=== PATIENT | female | born 1940 | race Hispanic/Latino ===

== ENCOUNTER 2019-12-15 13:42 | Inpatient (IN) | payer OTHER, MEDICARE ==
[~2019-12-15] VITALS: Ht 157.5 cm; Wt 74.4 kg
[2019-12-15 14:35] LABS: BASOPHILS % (AUTO) 0.6 % (0.0-5.0); HEMATOCRIT 34.3 % (36-48); LYMPHOCYTES % (AUTO) 12.5 % (21.0-51.0); MEAN CORPUSCULAR HEMOGLOBIN 30.8 pg (27.0-33.0); MEAN CORPUSCULAR HGB CONC 30.9 g/dL (32.0-36.0); MEAN CORPUSCULAR VOLUME 99.7 fL (79-99); MONOCYTES % (AUTO) 8.3 % (3.0-13.0); NEUTROPHILS % (AUTO) 74.3 % (40.0-77.0); NUCLEATED RED BLOOD CELLS 3.7 % (0.0-0.19); PLATELET COUNT (AUTO) 373 K/uL (130-400); RED BLOOD CELL COUNT(AUTO) 3.44 MIL/uL (4.00-5.50); RED CELL DISTRIBUTION WIDTH 22.1 % (11.0-15.5); WHITE BLOOD COUNT (AUTO) 6.7 K/uL (4.8-10.8)
[2019-12-15 14:45] LABS: APPEARANCE,URINE Clear (CLEAR); BILIRUBIN,URINE Small (NEGATIVE); COLOR,URINE Dark Yellow (YELLOW); GLUCOSE, URINE (UA) Negative (NEGATIVE); KETONES,URINE 15 mg/dL (NEGATIVE); LEUKOCYTE ESTERASE ,URINE Small (NEGATIVE); NITRATE,URINE Negative (NEGATIVE); OCCULT BLOOD,URINE Negative (NEGATIVE); PROTEIN,URINE Trace mg/dL (NEGATIVE)
[2019-12-15] MEDS ORDERED: DILTIAZEM HCL 125 MG/25 ML VIAL IV ONE (14:47)
[2019-12-15 14:49] LABS: INR 1.16 (0.85-1.15); PARTIAL THROMBOPLASTIN TIME 31.5 SEC (26.3-35.5); PROTHROMBIN TIME 12.5 SEC (9.6-11.6)
[2019-12-15] MEDS ORDERED: DILTIAZEM HCL 5 MG/ML 10 ML VIAL IV ONE (14:49)
[2019-12-15] MEDS ORDERED: SODIUM CHLORIDE 0.9% 1000ML 1,000 ML IV ONE (14:50)
[2019-12-15 15:14] LABS: BACTERIA,URINE Few /HPF (None Seen); MUCUS,URINE Moderate LPF (None Seen); RBC,URINE None Seen /HPF (0-1); YEAST,URINE BUDDING Moderate /HPF (None Seen)
[2019-12-15 15:23] LABS: ALANINE AMINOTRANSFERASE 24 U/L (12-78); ALBUMIN 2.6 g/dL (3.5-5.0); ASPARTATE AMINOTRANSFERASE 44 U/L (10-37); BILIRUBIN,TOTAL 1.1 mg/dL (0.2-1.0); CARBON DIOXIDE 17 mmol/L (21-32); CREATININE 3.5 mg/dL (0.5-1.5); GLOMERULAR FILTR. RATE CALC 13 mL/min (>60); GLUCOSE,RANDOM 139 mg/dL (70-105); POTASSIUM 3.7 mmol/L (3.5-5.1); TOTAL PROTEIN, SERUM 6.7 g/dL (6.0-8.3)
[2019-12-15 15:29] LABS: PLATELET MORPHOLOGY GIANT PLTS PRESENT
[2019-12-15 15:30] LABS: CHLORIDE 127 mmol/L (101-111); SODIUM SERUM > 162 mmol/L (136-145); UREA NITROGEN, BLOOD 121 mg/dL (7-18)
[2019-12-15] MEDS ORDERED: DEXTROSE 5%-WATER 1,000 ML IV ONE (17:29)
[2019-12-15 17:33] LABS: ABG BASE EXCESS -7.1 mmol/L (-2.0-3.0); ABG HCO3 16.8 mmol/L (21.0-28.0); ABG OXYGEN SATURATION 96.6 % (95.0-99.0); ABG PCO2 30 mmHg (32-45)
[2019-12-15] MEDS: DEXTROSE 5%-WATER 1,000 ML IV SCH (19:15)
[2019-12-15] MEDS ORDERED: CEFTRIAXONE SODIUM 500 MG VIAL IV SCH (19:15)
[2019-12-16 02:46] VITALS: BP 109/62
[2019-12-16] MEDS ORDERED: LACTATED RINGERS 1000ML 1,000 ML IV ONE (03:21)
[2019-12-16 04:13] LABS: ABG BASE EXCESS -8.2 mmol/L (-2.0-3.0); ABG HCO3 14.6 mmol/L (21.0-28.0); ABG OXYGEN SATURATION 96.9 % (95.0-99.0); ABG PCO2 25 mmHg (32-45)
[2019-12-16 04:15] VITALS: BP 101/69
[2019-12-16] MEDS: DEXTROSE 5%-WATER 1,000 ML IV SCH ×3 (05:07→20:23)
--- NOTE | 2019-12-16 05:52 | NUR ---
ADMISSION ASSESSMENT This is a 79 year old female who was brought to ED for SHORTNESS OF BREATH. Pt has Alzheimer's dementia and unable to provide ANY INFORMATION. PATIENT IS FROM [facility] WHICH DID NOT PROVIDE ANY PAPERWORK OR INFORMATION ON PATIENT. PATIENT DOES HAVE CHRONIC AFIB AND FOUND TO BE IN AFIB RVR. PATIENT'S HEART RATE IS BETWEEN 130'S-150'S. COMPRESSED GAS PLANT WORKER IS AWARE AND THINKS IT IS DUE TO DEHYDRATION AND ELECTROLYTE IMBALANCE. PATIENT HAS CARDIZEM DRIP AT 10MG/HR. MONITORING BLOOD PRESSURE CLOSELY WITH TITRATING CARDIZEM DRIP. D5W GOING AT 100ML/HR. PATIENT IS AWAKE AND CAN FOLLOW SIMPLE COMMANDS BUT DOES NOT SPEAK. ACUÑA INTACT WITH YELLOW URINE OUTPUT AT THIS TIME. BED ALARM IS ON.
[2019-12-16 06:49] LABS: BASOPHILS % (AUTO) 0.7 % (0.0-5.0); MEAN CORPUSCULAR HEMOGLOBIN 31.3 pg (27.0-33.0); MEAN CORPUSCULAR HGB CONC 30.9 g/dL (32.0-36.0); MEAN CORPUSCULAR VOLUME 101.2 fL (79-99); MONOCYTES % (AUTO) 7.6 % (3.0-13.0); NUCLEATED RED BLOOD CELLS 3.7 % (0.0-0.19); PLATELET COUNT (AUTO) 227 K/uL (130-400); RED BLOOD CELL COUNT(AUTO) 3.36 MIL/uL (4.00-5.50); RED CELL DISTRIBUTION WIDTH 22.2 % (11.0-15.5); WHITE BLOOD COUNT (AUTO) 6.8 K/uL (4.8-10.8)
--- NOTE | 2019-12-16 06:55 | NUR ---
CARDIZEM INCREASED CARDIZEM DRIP INCREASED TO 15MG/HR HEART RATE IS STILL IN THE 140'S. WILL MONITOR HEART RATE AND BLOOD PRESSURE CLOSELY
[2019-12-16 07:12] LABS: POTASSIUM 3.8 mmol/L (3.5-5.1)
[2019-12-16 07:45] VITALS: BP 111/58
[2019-12-16] MEDS ORDERED: HYDRALAZINE HCL 20 MG/ML VIAL IV PRN (07:45)
[2019-12-16] MEDS ORDERED: ONDANSETRON HCL 4 MG/2 ML VIAL IVP PRN (07:45)
[2019-12-16] MEDS ORDERED: ACETAMINOPHEN 325 MG TAB PO PRN (07:45)
[2019-12-16] MEDS ORDERED: LOPERAMIDE 1 MG/7.5 ML UDCUP PO PRN (07:45)
[2019-12-16] MEDS ORDERED: CEFTRIAXONE SODIUM 1 GM IV SCH (09:07)
[2019-12-16] MEDS: HEPARIN SODIUM 5000UNIT/ML 1ML VIAL SQ SCH ×2 (09:16→20:43)
[2019-12-16] MEDS: FAMOTIDINE 20MG TAB 20 MG TAB PO SCH (09:17)
[2019-12-16 11:10] VITALS: BP 86/70
[2019-12-16] MEDS ORDERED: PHARMACY COMMUNICATION MISC SCH (12:30)
[2019-12-16] MEDS ORDERED: DILTIAZEM 125MG+100 ML NS 125 ML IV SCH (12:45)
[2019-12-16] MEDS ORDERED: AMIODARONE HCL 150 MG in DEXTROSE 5%-WATER 100 ML IV SCH (14:30)
[2019-12-16] MEDS ORDERED: AMIODARONE HCL 360 MG in DEXTROSE 5%-WATER 200 ML IV SCH (14:30)
--- NOTE | 2019-12-16 15:25 | NUR ---
CHART CHECK COMPLETED. Pt IS A 79 Y.O. FEMALE ADMITTED SECONDARY TO AFIB RVR, DEHYDRATION, SEVERE HYPONATREMIA. Pt HAS A PAST MEDICAL HISTORY SIGNIFICANT FOR ALZHEIMER'S DEMENTIA, DM, DYSPHAGIA, COVID 19,RIGHT AND LEFT BUTTOCK PRESSURE ULCER. Pt CURRENTLY ON REGULAR TEXTURE,THIN LIQUID DIET (HEART HEALTHY). PLEASE REQUEST FORMAL SKILLED SPEECH/SWALLOW EVALUATION IF Pt PRESENTS WITH +S/S OF ASPIRATION SUCH COUGH RESPONSE, THROAT CLEAR, OR WET VOCAL QUALITY DURING P.O. EVALUATION IS HIGHLY RECOMMENDED DUE TO DYSPHAGIA HISTORY. Addendum: 12/16/19 at [address] Amended: Links added.
[2019-12-16 16:00] VITALS: BP 81/58
--- NOTE | 2019-12-16 16:53 | NUR ---
ARA PLAN PATIENT ADMITTED. PATIENT HAS DEMENTIA NOT ABLE TO ANSWER QUESTIONS. NO PERSON TO NOTIFY ON FACE SHEET. PER ER NOTES PATIENT IS FROM A SNF BUT NAME NOT GIVEN. PATIENT IN COVID UNIT. CM WILL CONTINUE TO FOLLOW. Addendum: 12/16/19 at 1654 by NATALI RUTLEDGE RN CM Amended: Links added.
[2019-12-16 20:21] VITALS: BP 115/85
--- NOTE | 2019-12-16 22:00 | NUR ---
2000 PATIENT PULLED OUT BOTH IV'S INCLUDING THE ONE WITH THE AMIODARONE DRIP. JOHN BHATTI WAS ABLE TO PLACE A 20G IN HER RIGHT FOREARM. DRIP RESTARTED
[2019-12-17 00:33] VITALS: BP 102/73
[2019-12-17] MEDS: AMIODARONE HCL 450 MG in DEXTROSE 5%-WATER 250 ML IV SCH (02:39)
[2019-12-17 04:01] VITALS: BP 98/62
[2019-12-17 05:30] LABS: BASOPHILS % (AUTO) 0.3 % (0.0-5.0); EOSINOPHILS % (AUTO) 0.7 % (0.0-8.0); HEMATOCRIT 29.4 % (36-48); LYMPHOCYTES % (AUTO) 8.4 % (21.0-51.0); MEAN CORPUSCULAR HEMOGLOBIN 31.2 pg (27.0-33.0); MEAN CORPUSCULAR HGB CONC 31.3 g/dL (32.0-36.0); MEAN CORPUSCULAR VOLUME 99.7 fL (79-99); MONOCYTES % (AUTO) 5.2 % (3.0-13.0); NEUTROPHILS % (AUTO) 81.9 % (40.0-77.0); NUCLEATED RED BLOOD CELLS 2.5 % (0.0-0.19); PLATELET COUNT (AUTO) 287 K/uL (130-400); RED BLOOD CELL COUNT(AUTO) 2.95 MIL/uL (4.00-5.50); RED CELL DISTRIBUTION WIDTH 21.7 % (11.0-15.5); WHITE BLOOD COUNT (AUTO) 7.2 K/uL (4.8-10.8)
[2019-12-17 06:06] LABS: ALBUMIN 2.3 g/dL (3.5-5.0); CREATININE 2.7 mg/dL (0.5-1.5); MAGNESIUM 1.9 mg/dL (1.80-2.40); PHOSPHORUS 3.1 mg/dL (2.5-4.9); POTASSIUM 3.4 mmol/L (3.5-5.1); TOTAL PROTEIN, SERUM 6.1 g/dL (6.0-8.3)
[2019-12-17 08:30] VITALS: BP 100/77
[2019-12-17] MEDS: FAMOTIDINE 20MG TAB 20 MG TAB PO SCH (09:32)
[2019-12-17] MEDS: HEPARIN SODIUM 5000UNIT/ML 1ML VIAL SQ SCH (09:34)
[2019-12-17 11:00] VITALS: BP 87/74
[2019-12-17] MEDS ORDERED: METOPROLOL TARTRATE 25 MG TAB PO SCH (11:00)
[2019-12-17] MEDS: DEXTROSE 5%-WATER 1,000 ML IV SCH ×2 (11:32→21:08)
--- NOTE | 2019-12-17 12:27 | NUR ---
ARA PLAN VISITED WITH PATIENT. PATIENT HAS DEMENTIA. ORTIZ CALLED SAID PATIENT CAME FROM HER FACILITY. [place] FOR [place] [facility] [place]. GAVE ME SONS NUMBER. CALLED SON. PER PATIENT LIVES ALONE. PRIOR TO GETTING SICK. SHE WAS ABLE TO PERFORM ADL'S. PATIENT HAD NO DME. PROVIDER FOR A COUPLE OF HOURS. PER SON SAID WANTS MOM TO RETURN TO [facility] ONCE SHE IS FEELING BETTER FOR THERAPY. CM WILL CONTINUE TO FOLLOW. PASQUALE PATEL [phone] SENT TO REGISTRATION TO UPDATE. Addendum: 12/17/19 at 1231 by NATALI RUTLEDGE RN CM Amended: Links added.
[2019-12-17 15:30] VITALS: BP 119/94
[2019-12-17] MEDS: METOPROLOL TARTRATE 1 MG/ML 5ML VIAL IV PRN (17:21)
--- NOTE | 2019-12-17 17:37 | NUR ---
METOPROLOL IV GAVE 5MG IV TO PATIENT FOR ELEVATED HEART RATE OF 134. BP 112/94. AFTER FIRST DOSE PATIENT HEART RATE WAS 129 WITH BP OF 82/49, DID NOT GIVE SECOND DOSE OF METOPROLOL DUE TO BP BELOW 100MMHG.
[2019-12-17 20:24] VITALS: BP 98/70
[2019-12-17] MEDS: METOPROLOL TARTRATE 25 MG TAB PO SCH (21:08)
[2019-12-18 00:15] VITALS: BP 97/77
[2019-12-18 04:13] LABS: ABG BASE EXCESS -5.4 mmol/L (-2.0-3.0); ABG HCO3 14.2 mmol/L (21.0-28.0); ABG PCO2 18 mmHg (32-45)
[2019-12-18 04:15] VITALS: BP 124/58
[2019-12-18] MEDS: DEXTROSE 5%-WATER 1,000 ML IV SCH ×3 (04:38→20:07)
[2019-12-18 05:53] LABS: BASOPHILS % (AUTO) 0.4 % (0.0-5.0); EOSINOPHILS % (AUTO) 0.1 % (0.0-8.0); HEMATOCRIT 29.7 % (36-48); LYMPHOCYTES % (AUTO) 8.3 % (21.0-51.0); MEAN CORPUSCULAR HEMOGLOBIN 30.7 pg (27.0-33.0); MEAN CORPUSCULAR HGB CONC 31.3 g/dL (32.0-36.0); MONOCYTES % (AUTO) 4.6 % (3.0-13.0); NEUTROPHILS % (AUTO) 83.2 % (40.0-77.0); NUCLEATED RED BLOOD CELLS 0.6 % (0.0-0.19); PLATELET COUNT (AUTO) 253 K/uL (130-400); RED BLOOD CELL COUNT(AUTO) 3.03 MIL/uL (4.00-5.50); WHITE BLOOD COUNT (AUTO) 7.2 K/uL (4.8-10.8)
[2019-12-18 06:39] LABS: BILIRUBIN,TOTAL 1.1 mg/dL (0.2-1.0); CREATININE 2.5 mg/dL (0.5-1.5); MAGNESIUM 1.8 mg/dL (1.80-2.40); PHOSPHORUS 2.9 mg/dL (2.5-4.9); POTASSIUM 3.3 mmol/L (3.5-5.1); TOTAL PROTEIN, SERUM 5.9 g/dL (6.0-8.3)
[2019-12-18] MEDS ORDERED: DILTIAZEM HCL 5 MG/ML 10 ML VIAL IV SCH (08:45)
[2019-12-18] MEDS: METOPROLOL TARTRATE 25 MG TAB PO SCH ×3 (08:59→20:07)
[2019-12-18] MEDS: AMIODARONE HCL 200 MG TABLET PO SCH (09:16)
[2019-12-18] MEDS: FAMOTIDINE 20MG TAB 20 MG TAB PO SCH (09:16)
[2019-12-18] MEDS: CEFTRIAXONE SODIUM 1 GM IV SCH (09:16)
[2019-12-18 09:21] VITALS: BP 116/64
--- NOTE | 2019-12-18 10:32 | NUR ---
CARDIOLOGY CALL TO GET AN UPDATE OF THE PATIENT CONDITION, AFTER EVALUATION HE ORDER TO ADM CARDIZEM 20 MG IV, START CARDIZEM DRIP AND HOLD METOPROLOL FOR NOW. AT THE MOMENT PT WITH SUSTAIN HR 140-148, BP 116/64.
[2019-12-18 12:00] VITALS: BP 102/80
[2019-12-18] MEDS: DILTIAZEM HCL 125 MG/25 ML 125 MG in SODIUM CHLORIDE 0.9% 100 ML IV SCH (12:30)
[2019-12-18] MEDS: ENOXAPARIN SODIUM 80 MG/0.8 ML SQ SCH (13:55)
[2019-12-18] MEDS: AMIODARONE HCL 150 MG in DEXTROSE 5%-WATER 100 ML IV SCH ×2 (18:24→18:30)
[2019-12-18 19:06] VITALS: BP 101/69
[2019-12-18 20:30] VITALS: BP 97/60
[2019-12-18] MEDS: AMIODARONE HCL 450 MG in DEXTROSE 5%-WATER 250 ML IV SCH (21:40)
[2019-12-19] VITALS (7 sets, daily range): BP systolic 97–112; BP diastolic 66–84
[2019-12-19 05:08] LABS: HEMATOCRIT 28.7 % (36-48); MEAN CORPUSCULAR HEMOGLOBIN 31.2 pg (27.0-33.0); MEAN CORPUSCULAR HGB CONC 32.1 g/dL (32.0-36.0); MEAN CORPUSCULAR VOLUME 97.3 fL (79-99); RED BLOOD CELL COUNT(AUTO) 2.95 MIL/uL (4.00-5.50); RED CELL DISTRIBUTION WIDTH 20.5 % (11.0-15.5); WHITE BLOOD COUNT (AUTO) 6.2 K/uL (4.8-10.8)
[2019-12-19 05:37] LABS: CREATININE 2.3 mg/dL (0.5-1.5); MAGNESIUM 1.7 mg/dL (1.80-2.40); PHOSPHORUS 3.4 mg/dL (2.5-4.9)
[2019-12-19] MEDS ORDERED: POTASSIUM CHLORIDE 10% ELIXIR 20 MEQ/15 ML UDCUP ONE (06:27)
[2019-12-19] MEDS ORDERED: LIDOCAINE HCL-MPF 1% 2ML VIAL IV PRN (06:45)
[2019-12-19] MEDS ORDERED: POTASSIUM CHLORIDE 10% ELIXIR 20 MEQ/15 ML UDCUP PO PRN (06:45)
[2019-12-19] MEDS ORDERED: POTASSIUM CHLORIDE 20 MEQ ERTAB PO PRN (06:45)
[2019-12-19] MEDS ORDERED: SODIUM BICARB 8.4% 50ML SYRING 150 MEQ in DEXTROSE 5%-WATER 1,000 ML IV SCH (07:30)
[2019-12-19] MEDS: METOPROLOL TARTRATE 25 MG TAB PO SCH ×2 (09:00→13:40)
[2019-12-19] MEDS: ENOXAPARIN SODIUM 80 MG/0.8 ML SQ SCH (09:18)
[2019-12-19] MEDS: CEFTRIAXONE SODIUM 1 GM IV SCH (09:18)
[2019-12-19] MEDS: AMIODARONE HCL 200 MG TABLET PO SCH (09:18)
[2019-12-19] MEDS: FAMOTIDINE 20MG TAB 20 MG TAB PO SCH (09:18)
[2019-12-19] MEDS: DEXTROSE 5%-WATER 1,000 ML IV SCH ×2 (13:15→22:43)
--- NOTE | 2019-12-19 13:31 | NUR ---
MAURO, ETHNOGRAPHIC MATERIALS CONSERVATOR CALL TO NOTIFY THAT CARDIZEM AND AMIODARONE DRIPS WILL BE D/C AND WILL CONT. TREATMENT WITH METOPROLOL 50MG TID, PIIC LINE ALSO WAS RECOMENDED AND ORDERED. MAURO WAS NOTIFY ABOUT CURRENT BEHAVIOR OF THE PT DUE TO HER HX OF DEMENTHIA AND ALZHEIMER SHE IS BEEN ANXIOUS, NON COOPERATIVE AND PULL BOTH OF HER IV ACCESS. ONE TO ONE ORDERED.
[2019-12-19] MEDS: AMIODARONE HCL 450 MG in DEXTROSE 5%-WATER 250 ML IV SCH (13:38)
[2019-12-19] MEDS: DILTIAZEM HCL 125 MG/25 ML 125 MG in SODIUM CHLORIDE 0.9% 100 ML IV SCH (13:40)
--- NOTE | 2019-12-19 15:45 | NUR ---
LAKESHA DAUGHTER OF PT WAS CALL AND INFORM ABOUT PICC LINE PLACEMENT DUE TO POOR IV ACCESS. CONSENT WAS GIVEN BY PHONE AND FELI PICC LINE NURSE WITNESS AND SIGN CONSENT.
[2019-12-19 16:31] LABS: INR 1.18 (0.85-1.15); PROTHROMBIN TIME 12.7 SEC (9.6-11.6)
--- NOTE | 2019-12-19 19:03 | NUR ---
PUSHPA SAXENA HEL TO TRANSFER THE PT TO ROOM 202 .
--- NOTE | 2019-12-19 22:22 | NUR ---
5 FR 2 LUMEN PICC INSERTED TO LEFT BASILIC VEIN, USING ASEPTIC TECHNIQUE. UNABLE TO OBTAIN BULLSEYE PER VPS, CHEST XRAY ORDERED. DR. CRUZ RADIOLOGIST CONFIRMED PICC TIP IN PROXIMAL SVC. PICC OK TO USE. RN AWARE.
[2019-12-19] MEDS: METOPROLOL TARTRATE 50 MG TAB PO SCH (22:42)
[2019-12-19] MEDS: MAGNESIUM 2GM PREMIX 50ML 50 ML IV SCH (22:43)
[2019-12-20 03:26] VITALS: BP 118/69
[2019-12-20 05:17] LABS: BASOPHILS % (AUTO) 0.3 % (0.0-5.0); EOSINOPHILS % (AUTO) 0.7 % (0.0-8.0); HEMATOCRIT 30.5 % (36-48); LYMPHOCYTES % (AUTO) 11.8 % (21.0-51.0); MEAN CORPUSCULAR HEMOGLOBIN 31.3 pg (27.0-33.0); MEAN CORPUSCULAR HGB CONC 31.5 g/dL (32.0-36.0); MEAN CORPUSCULAR VOLUME 99.3 fL (79-99); MONOCYTES % (AUTO) 6.5 % (3.0-13.0); NEUTROPHILS % (AUTO) 78.1 % (40.0-77.0); NUCLEATED RED BLOOD CELLS 0.5 % (0.0-0.19); PLATELET COUNT (AUTO) 196 K/uL (130-400); RED BLOOD CELL COUNT(AUTO) 3.07 MIL/uL (4.00-5.50); RED CELL DISTRIBUTION WIDTH 21.2 % (11.0-15.5); WHITE BLOOD COUNT (AUTO) 5.9 K/uL (4.8-10.8)
[2019-12-20 05:39] LABS: BILIRUBIN,TOTAL 0.8 mg/dL (0.2-1.0); POTASSIUM 3.8 mmol/L (3.5-5.1); TOTAL PROTEIN, SERUM 6.2 g/dL (6.0-8.3)
[2019-12-20 08:00] VITALS: BP 121/59
[2019-12-20] MEDS: AMIODARONE HCL 200 MG TABLET PO SCH (08:28)
[2019-12-20] MEDS: METOPROLOL TARTRATE 50 MG TAB PO SCH ×3 (08:28→21:00)
[2019-12-20] MEDS: CEFTRIAXONE SODIUM 1 GM IV SCH (08:30)
[2019-12-20] MEDS: FAMOTIDINE 20MG TAB 20 MG TAB PO SCH (08:30)
[2019-12-20] MEDS: ENOXAPARIN SODIUM 80 MG/0.8 ML SQ SCH (08:53)
[2019-12-20] MEDS: DEXTROSE 5%-WATER 1,000 ML IV SCH ×2 (09:17→19:15)
[2019-12-20 12:01] VITALS: BP 97/42
[2019-12-20 15:57] VITALS: BP 110/81
[2019-12-20 20:00] VITALS: BP 90/71
[2019-12-21] VITALS: BP 122/73
[2019-12-21 04:00] VITALS: BP 114/58
[2019-12-21] MEDS: DEXTROSE 5%-WATER 1,000 ML IV SCH ×2 (05:35→15:15)
[2019-12-21 09:09] VITALS: BP 119/62
[2019-12-21] MEDS: CEFTRIAXONE SODIUM 1 GM IV SCH (09:27)
[2019-12-21] MEDS: FAMOTIDINE 20MG TAB 20 MG TAB PO SCH (09:27)
[2019-12-21] MEDS: METOPROLOL TARTRATE 50 MG TAB PO SCH ×3 (09:28→21:00)
[2019-12-21] MEDS: ENOXAPARIN SODIUM 80 MG/0.8 ML SQ SCH (09:28)
[2019-12-21] MEDS: AMIODARONE HCL 200 MG TABLET PO SCH (09:29)
[2019-12-21 11:39] VITALS: BP 107/68
[2019-12-21] MEDS: METOPROLOL TARTRATE 1 MG/ML 5ML VIAL IV PRN (11:49)
[2019-12-21 16:18] VITALS: BP 108/62
[2019-12-21] MEDS: DILTIAZEM HCL 60 MG TABLET PO SCH (18:21)
[2019-12-21 20:00] VITALS: BP 104/51
[2019-12-22] VITALS (7 sets, daily range): BP systolic 94–111; BP diastolic 57–76
[2019-12-22] MEDS: DILTIAZEM HCL 60 MG TABLET PO SCH ×5 (00:47→23:36)
[2019-12-22] MEDS: DEXTROSE 5%-WATER 1,000 ML IV SCH ×2 (00:47→11:21)
[2019-12-22 04:26] LABS: BASOPHILS % (AUTO) 0.3 % (0.0-5.0); EOSINOPHILS % (AUTO) 0.3 % (0.0-8.0); HEMATOCRIT 27.7 % (36-48); LYMPHOCYTES % (AUTO) 10.5 % (21.0-51.0); MEAN CORPUSCULAR HEMOGLOBIN 31.1 pg (27.0-33.0); MEAN CORPUSCULAR HGB CONC 32.1 g/dL (32.0-36.0); MEAN CORPUSCULAR VOLUME 96.9 fL (79-99); MONOCYTES % (AUTO) 4.3 % (3.0-13.0); NEUTROPHILS % (AUTO) 82.8 % (40.0-77.0); NUCLEATED RED BLOOD CELLS 0.3 % (0.0-0.19); PLATELET COUNT (AUTO) 183 K/uL (130-400); RED BLOOD CELL COUNT(AUTO) 2.86 MIL/uL (4.00-5.50); WHITE BLOOD COUNT (AUTO) 7.7 K/uL (4.8-10.8)
[2019-12-22 04:41] LABS: ALBUMIN 1.7 g/dL (3.5-5.0); BILIRUBIN,TOTAL 0.5 mg/dL (0.2-1.0); CREATININE 1.5 mg/dL (0.5-1.5); POTASSIUM 3.3 mmol/L (3.5-5.1); TOTAL PROTEIN, SERUM 5.4 g/dL (6.0-8.3)
[2019-12-22] MEDS: AMIODARONE HCL 200 MG TABLET PO SCH (09:29)
[2019-12-22] MEDS: METOPROLOL TARTRATE 50 MG TAB PO SCH ×3 (09:29→21:30)
[2019-12-22] MEDS: CEFTRIAXONE SODIUM 1 GM IV SCH (09:29)
[2019-12-22] MEDS: FAMOTIDINE 20MG TAB 20 MG TAB PO SCH (09:29)
[2019-12-22] MEDS: ENOXAPARIN SODIUM 80 MG/0.8 ML SQ SCH (09:29)
[2019-12-22] MEDS: SODIUM BICARBONATE 650 MG TAB PO SCH ×2 (09:32→21:30)
--- NOTE | 2019-12-22 11:54 | NUR ---
RDSCREEN - LOS X 7 Pt admitted with AFib w/RVR. Pt with 75gm CC, Heart Healthy diet order in place. No report of GI distress. Decreased appetite. Monitored labs: K 3.3, GFR 36, BG 160, Alb 1.7. Stage 2 Buttock Ulcer. Positive COVID-19. Recommend Jonah BID, 500mg Vitamin C (BID), 220mg Zinc (QD), for wound healing support Recommend Ensure BID Recommend 60mL ProMod BID RD to continue to monitor. Please notify as additional nutrition concerns arise. Thank you. Addendum: 12/22/19 at [address] Amended: Links added.
[2019-12-23] VITALS (7 sets, daily range): BP systolic 97–137; BP diastolic 48–82
[2019-12-23] MEDS: DILTIAZEM HCL 60 MG TABLET PO SCH (05:35)
[2019-12-23] MEDS: AMIODARONE HCL 200 MG TABLET PO SCH (08:37)
[2019-12-23] MEDS: FAMOTIDINE 20MG TAB 20 MG TAB PO SCH (08:37)
[2019-12-23] MEDS: SODIUM BICARBONATE 650 MG TAB PO SCH ×2 (08:37→20:47)
[2019-12-23] MEDS: METOPROLOL TARTRATE 50 MG TAB PO SCH ×3 (08:37→20:47)
[2019-12-23] MEDS: CEFTRIAXONE SODIUM 1 GM IV SCH (08:37)
[2019-12-23] MEDS: ENOXAPARIN SODIUM 80 MG/0.8 ML SQ SCH (08:38)
[2019-12-23 09:16] LABS: CREATININE 1.4 mg/dL (0.5-1.5); POTASSIUM 3.5 mmol/L (3.5-5.1)
[2019-12-24 03:56] VITALS: BP 109/54
[2019-12-24 04:32] LABS: BASOPHILS % (AUTO) 0.3 % (0.0-5.0); EOSINOPHILS % (AUTO) 0.5 % (0.0-8.0); HEMATOCRIT 27.5 % (36-48); LYMPHOCYTES % (AUTO) 11.6 % (21.0-51.0); MEAN CORPUSCULAR HGB CONC 32.7 g/dL (32.0-36.0); MEAN CORPUSCULAR VOLUME 94.8 fL (79-99); NEUTROPHILS % (AUTO) 78.7 % (40.0-77.0); PLATELET COUNT (AUTO) 202 K/uL (130-400); WHITE BLOOD COUNT (AUTO) 6.4 K/uL (4.8-10.8)
[2019-12-24 04:46] LABS: CREATININE 1.3 mg/dL (0.5-1.5); POTASSIUM 3.5 mmol/L (3.5-5.1)
[2019-12-24 08:00] VITALS: BP 116/72
[2019-12-24] MEDS: CEFTRIAXONE SODIUM 1 GM IV SCH (08:32)
[2019-12-24] MEDS: AMIODARONE HCL 200 MG TABLET PO SCH (08:34)
[2019-12-24] MEDS: SODIUM BICARBONATE 650 MG TAB PO SCH ×2 (08:35→22:19)
[2019-12-24] MEDS: FAMOTIDINE 20MG TAB 20 MG TAB PO SCH (08:35)
[2019-12-24] MEDS: ENOXAPARIN SODIUM 80 MG/0.8 ML SQ SCH (08:35)
[2019-12-24] MEDS: METOPROLOL TARTRATE 50 MG TAB PO SCH ×4 (08:36→22:19)
[2019-12-24] MEDS ORDERED: DIGOXIN 250 MCG/ML 2ML AMP IV SCH ×2 (08:45→18:00)
[2019-12-24] MEDS: APIXABAN 5 MG TABLET PO SCH ×3 (09:38→22:19)
[2019-12-24 12:00] VITALS: BP 119/66
[2019-12-24 16:00] VITALS: BP 108/88
[2019-12-24 19:00] VITALS: BP 130/65
[2019-12-24 23:00] VITALS: BP 120/69
[2019-12-25] MEDS ORDERED: DIGOXIN 250 MCG/ML 2ML AMP IV SCH
[2019-12-25 03:00] VITALS: BP 118/63
[2019-12-25 07:52] VITALS: BP 124/56
[2019-12-25] MEDS: AMIODARONE HCL 200 MG TABLET PO SCH (09:31)
[2019-12-25] MEDS: METOPROLOL TARTRATE 50 MG TAB PO SCH ×2 (09:31→13:58)
[2019-12-25] MEDS: FAMOTIDINE 20MG TAB 20 MG TAB PO SCH (09:31)
[2019-12-25] MEDS: CEFTRIAXONE SODIUM 1 GM IV SCH (09:31)
[2019-12-25] MEDS: SODIUM BICARBONATE 650 MG TAB PO SCH (09:31)
[2019-12-25] MEDS: APIXABAN 5 MG TABLET PO SCH (09:31)
[2019-12-25 12:00] VITALS: BP 122/76
[2019-12-25] MEDS: METOPROLOL TARTRATE 1 MG/ML 5ML VIAL IV SCH ×2 (15:38→20:36)
[2019-12-25 16:00] VITALS: BP 119/67
[2019-12-25 19:00] VITALS: BP 124/76
--- NOTE | 2019-12-25 20:00 | NUR ---
patient alert and oriented times person. she does not want to be fed or drink any type of liquid tonight. she continues to pull at her picc line. i wrapped kerlex around the picc line to prevent her from pulling it out. patient has 2 bowel movements for tonight (light brown and loose) alone with 300 ml of urine output. i hanged 1 bag of iv potassium to replace her current level of 3.7 and hanged a bag of magnesium to replace her 1.7 level for today 12/26/2019.
[2019-12-25] MEDS: ENOXAPARIN SODIUM 60 MG/0.6 ML SQ SCH (20:36)
[2019-12-25] MEDS ORDERED: GLUCAGON 1MG KIT 1 MG ML IM PRN (21:15)
[2019-12-25 23:00] VITALS: BP 136/89
--- NOTE | 2019-12-26 00:41 | NUR ---
wound care conducted on patient's sacral ulcer with saline and allevyn foam. picture taken and placed on the chart
[2019-12-26] MEDS: METOPROLOL TARTRATE 1 MG/ML 5ML VIAL IV SCH ×4 (01:56→20:28)
[2019-12-26 03:00] VITALS: BP 133/59
[2019-12-26] MEDS: POTASSIUM CHLORIDE 20MEQ/100ML 100 ML IV PRN (04:36)
[2019-12-26 04:41] LABS: BASOPHILS % (AUTO) 0.3 % (0.0-5.0); EOSINOPHILS % (AUTO) 0.5 % (0.0-8.0); HEMATOCRIT 27.7 % (36-48); LYMPHOCYTES % (AUTO) 12.2 % (21.0-51.0); MEAN CORPUSCULAR HEMOGLOBIN 31.5 pg (27.0-33.0); MEAN CORPUSCULAR HGB CONC 32.9 g/dL (32.0-36.0); MEAN CORPUSCULAR VOLUME 95.8 fL (79-99); MONOCYTES % (AUTO) 6.5 % (3.0-13.0); NEUTROPHILS % (AUTO) 77.6 % (40.0-77.0); PLATELET COUNT (AUTO) 209 K/uL (130-400); RED BLOOD CELL COUNT(AUTO) 2.89 MIL/uL (4.00-5.50); RED CELL DISTRIBUTION WIDTH 18.6 % (11.0-15.5); WHITE BLOOD COUNT (AUTO) 6.1 K/uL (4.8-10.8)
[2019-12-26 04:52] LABS: CREATININE 1.3 mg/dL (0.5-1.5); MAGNESIUM 1.7 mg/dL (1.80-2.40); POTASSIUM 3.7 mmol/L (3.5-5.1)
[2019-12-26] MEDS: DEXTROSE 50%-WATER 50 ML DISP.SYRIN IV PRN (05:11)
[2019-12-26] MEDS: MAGNESIUM 2GM PREMIX 50ML 50 ML IV SCH (05:11)
[2019-12-26 07:44] VITALS: BP 136/76
[2019-12-26] MEDS: FAMOTIDINE/PF 20 MG/2 ML VIAL IV SCH (08:42)
[2019-12-26] MEDS: ENOXAPARIN SODIUM 60 MG/0.6 ML SQ SCH ×2 (08:42→20:29)
[2019-12-26] MEDS: CEFTRIAXONE SODIUM 1 GM IV SCH (08:43)
[2019-12-26] MEDS ORDERED: DIGOXIN 125 MCG TABLET PO SCH (09:00)
[2019-12-26] MEDS: DIGOXIN 250 MCG/ML 2ML AMP IV SCH (09:37)
[2019-12-26 11:05] VITALS: BP 139/71
[2019-12-26 15:32] VITALS: BP 122/55
[2019-12-26 19:00] VITALS: BP 117/71
[2019-12-26 23:00] VITALS: BP 120/69
[2019-12-27] MEDS: METOPROLOL TARTRATE 1 MG/ML 5ML VIAL IV SCH ×2 (02:49→09:31)
[2019-12-27 03:00] VITALS: BP 107/65
[2019-12-27 06:46] LABS: MAGNESIUM 2.2 mg/dL (1.80-2.40); POTASSIUM 4.1 mmol/L (3.5-5.1)
[2019-12-27 07:45] LABS: HEMATOCRIT 28.7 % (36-48); MEAN CORPUSCULAR HGB CONC 32.1 g/dL (32.0-36.0); MEAN CORPUSCULAR VOLUME 96.6 fL (79-99); PLATELET COUNT (AUTO) 242 K/uL (130-400); RED BLOOD CELL COUNT(AUTO) 2.97 MIL/uL (4.00-5.50); RED CELL DISTRIBUTION WIDTH 18.5 % (11.0-15.5); WHITE BLOOD COUNT (AUTO) 6.6 K/uL (4.8-10.8)
[2019-12-27 08:01] VITALS: BP 128/64
[2019-12-27 08:45] LABS: ALBUMIN 1.8 g/dL (3.5-5.0); BILIRUBIN,TOTAL 0.5 mg/dL (0.2-1.0); CREATININE 1.3 mg/dL (0.5-1.5); TOTAL PROTEIN, SERUM 5.9 g/dL (6.0-8.3)
[2019-12-27 09:00] VITALS: BP 133/77
[2019-12-27] MEDS: ENOXAPARIN SODIUM 60 MG/0.6 ML SQ SCH ×2 (09:01→20:32)
[2019-12-27] MEDS: DIGOXIN 250 MCG/ML 2ML AMP IV SCH (09:02)
[2019-12-27] MEDS: FAMOTIDINE/PF 20 MG/2 ML VIAL IV SCH (09:02)
[2019-12-27 09:34] LABS: EOSINOPHILS % (MANUAL) 1 % (1-6); LYMPHOCYTES % (MANUAL) 18 % (22-44); MAN.DIFF COMMENT-IMPRESSION MANUAL DIFFERENTIAL; MONOCYTES % (MANUAL) 4 % (2-9); PLATELET MORPHOLOGY COMMENT ADEQUATE; SEGMENTED NEUTROPHILS % 77 % (40-70)
--- NOTE | 2019-12-27 10:14 | NUR ---
pt attempted to eat breakfast, spit back up her eggs at this time. reported feeling nauseous. RN gave zofran.
[2019-12-27 11:07] VITALS: BP 127/60
--- NOTE | 2019-12-27 14:23 | NUR ---
cm note call made to pts son tl pathak [phone] and states that he does not want pt to return to [facility], wants for her to go to a facility in [place] close to their home. states he is primary decisionmaker. call made to Mary with [facility] and state they are a Covid positive only facility and they are in network and will need retest of covid. also call to Louis with [facility] they are in network provider but they are not taking Covid positive pts at this time. as per [facility], in [place]. request callback saturday for info. updated pt's son Tl on above information and states prefers [facility] if pt qualifies. 2nd choice is [facility]. choice leter obtained.
[2019-12-27 15:44] VITALS: BP 121/55
[2019-12-27 19:53] VITALS: BP 159/73
[2019-12-27] MEDS: METOPROLOL TARTRATE 50 MG TAB PO SCH (20:29)
[2019-12-28 00:15] VITALS: BP 152/50
--- NOTE | 2019-12-28 03:20 | NUR ---
NOTE PT PULLED OUT ACUÑA CATHETER. BALLOON INTACT. BLADDER SCAN PERFORMED, 12 ML NOTED ON SCAN. WILL CONT TO MONITOR.
[2019-12-28 03:30] VITALS: BP 137/91
--- NOTE | 2019-12-28 04:10 | NUR ---
WOUND CARE CHANGED ALLEVYN PAD TO COCCYX AREA.
[2019-12-28] MEDS: METOPROLOL TARTRATE 50 MG TAB PO SCH ×2 (08:09→20:02)
[2019-12-28] MEDS: DIGOXIN 125 MCG TABLET PO SCH (08:09)
[2019-12-28] MEDS: FAMOTIDINE 20MG TAB 20 MG TAB PO SCH (08:09)
[2019-12-28] MEDS: ENOXAPARIN SODIUM 60 MG/0.6 ML SQ SCH ×2 (08:10→20:04)
[2019-12-28 08:15] VITALS: BP 137/76
[2019-12-28 11:10] VITALS: BP 126/73
--- NOTE | 2019-12-28 13:36 | NUR ---
cm note spoke to Hollie at [facility] and updated on information that pt son wants to transfer to a facility in [place]. hollie verbalizes understanding. call made to tressa with [facility] and referral faxed, and states will need updated covid test, due to [facility] is a covid positive only facility, can accept pt once covid test done, if it is negative will not be able to accept at [facility].
--- NOTE | 2019-12-28 13:55 | NUR ---
DYSPHAGIA EVAL COMPLETED. RECOMMEND PUREED, THIN LIQUIDS; PILLS CRUSHED WITH APPLESAUCE. Addendum: 12/28/19 at 1359 by LAURA PRAJAPATI, [facility] Amended: Links added.
--- NOTE | 2019-12-28 15:00 | NUR ---
[facility] CONSULT RECOMMENDATIONS SUBMITTED BASED ON PICTURES AND REPORT FROM FLOOR NURSE DUE TO COVID-19 PRECAUTIONS. Addendum: 12/29/19 at 1141 by JAYANT ALVARES LVN LVN W Amended: Links added.
[2019-12-28 16:32] VITALS: BP 110/58
[2019-12-28 21:34] VITALS: BP 145/73
[2019-12-29] VITALS (7 sets, daily range): BP systolic 118–141; BP diastolic 59–74
[2019-12-29 05:47] LABS: BASOPHILS % (AUTO) 0.6 % (0.0-5.0); EOSINOPHILS % (AUTO) 0.7 % (0.0-8.0); HEMATOCRIT 30.7 % (36-48); LYMPHOCYTES % (AUTO) 12.3 % (21.0-51.0); MEAN CORPUSCULAR HEMOGLOBIN 31.1 pg (27.0-33.0); MEAN CORPUSCULAR HGB CONC 32.2 g/dL (32.0-36.0); MEAN CORPUSCULAR VOLUME 96.5 fL (79-99); NEUTROPHILS % (AUTO) 77.5 % (40.0-77.0); PLATELET COUNT (AUTO) 295 K/uL (130-400); RED BLOOD CELL COUNT(AUTO) 3.18 MIL/uL (4.00-5.50); RED CELL DISTRIBUTION WIDTH 18.4 % (11.0-15.5); WHITE BLOOD COUNT (AUTO) 6.8 K/uL (4.8-10.8)
[2019-12-29 06:01] LABS: CREATININE 1.2 mg/dL (0.5-1.5); MAGNESIUM 2.1 mg/dL (1.80-2.40)
[2019-12-29] MEDS: FAMOTIDINE 20MG TAB 20 MG TAB PO SCH (08:14)
[2019-12-29] MEDS: METOPROLOL TARTRATE 50 MG TAB PO SCH ×2 (08:14→20:32)
[2019-12-29] MEDS: DIGOXIN 125 MCG TABLET PO SCH (08:14)
[2019-12-29] MEDS: ENOXAPARIN SODIUM 60 MG/0.6 ML SQ SCH ×2 (08:15→20:32)
--- NOTE | 2019-12-29 11:46 | NUR ---
FOLLOW UP COMPLETED. Pt TOLERATING PUREED, THIN LIQUID DIET WITH NO OVERT S/S OF ASPIRATION. Pt WITH LOW P.O. PUBLIC RELATIONS SUPERVISOR ON THE CASELOAD AT THIS TIME. Addendum: 12/29/19 at 1155 by LAURA PRAJAPATI, [facility] ST Amended: Links added.
[2019-12-30 04:34] VITALS: BP 126/70
[2019-12-30 08:01] VITALS: BP 137/70
[2019-12-30] MEDS: ENOXAPARIN SODIUM 60 MG/0.6 ML SQ SCH ×2 (08:46→20:02)
[2019-12-30] MEDS: FAMOTIDINE 20MG TAB 20 MG TAB PO SCH (08:46)
[2019-12-30] MEDS: METOPROLOL TARTRATE 50 MG TAB PO SCH ×2 (08:47→20:02)
[2019-12-30] MEDS: DIGOXIN 125 MCG TABLET PO SCH (08:47)
--- NOTE | 2019-12-30 10:10 | NUR ---
DC PLAN SPOKE TO LAB SAID THAT TEST WAS TAKEN PRIORITY. SHOULD BE BACK TODAY OR TOMORROW. Addendum: 12/30/19 at 1011 by NATALI RUTLEDGE RN CM Amended: Links added.
[2019-12-30 11:31] VITALS: BP 124/74
[2019-12-30] MEDS: PERMETHRIN CREAM 5% 60GM TUBE TP SCH ×2 (12:37→18:52)
[2019-12-30 16:09] VITALS: BP 130/67
[2019-12-30] MEDS ORDERED: DEXTROSE 5 %-0.45 % NACL 1,000 ML IV ONE (17:20)
[2019-12-30] MEDS: DEXTROSE 50%-WATER 50 ML DISP.SYRIN IV PRN (18:51)
[2019-12-30 20:20] VITALS: BP 122/55
[2019-12-31] VITALS (7 sets, daily range): BP systolic 97–138; BP diastolic 42–76
[2019-12-31 04:22] LABS: HEMATOCRIT 31.5 % (36-48); MEAN CORPUSCULAR HEMOGLOBIN 30.6 pg (27.0-33.0); MEAN CORPUSCULAR HGB CONC 32.1 g/dL (32.0-36.0); MEAN CORPUSCULAR VOLUME 95.5 fL (79-99); RED BLOOD CELL COUNT(AUTO) 3.3 MIL/uL (4.00-5.50); WHITE BLOOD COUNT (AUTO) 7.1 K/uL (4.8-10.8)
[2019-12-31 04:48] LABS: ALBUMIN 2.1 g/dL (3.5-5.0); BILIRUBIN,TOTAL 0.6 mg/dL (0.2-1.0); CREATININE 1.1 mg/dL (0.5-1.5); POTASSIUM 3.6 mmol/L (3.5-5.1); TOTAL PROTEIN, SERUM 6.5 g/dL (6.0-8.3)
[2019-12-31] MEDS: METOPROLOL TARTRATE 50 MG TAB PO SCH ×2 (09:00→20:38)
[2019-12-31] MEDS: FAMOTIDINE 20MG TAB 20 MG TAB PO SCH (09:00)
[2019-12-31] MEDS: ENOXAPARIN SODIUM 60 MG/0.6 ML SQ SCH ×2 (09:00→20:39)
[2019-12-31] MEDS: DIGOXIN 125 MCG TABLET PO SCH (09:00)
--- NOTE | 2019-12-31 10:17 | NUR ---
ARA VIVEROS GOT COVID RESULTS BACK NOTIFIED JOEL WITH FACILITY. EMAILED RESULTS. GOT ACCEPTANCE. [facility] KNOW OF ACCEPTANCE. Addendum: 12/31/19 at 1020 by NATALI RUTLEDGE RN CM Amended: Links added.
--- NOTE | 2019-12-31 11:45 | NUR ---
RD FOLLOW UP Pt with 75gm CC, Heart healthy diet order in place. Pt is nonverbal, AMS/Dementia, not eating as per RN. S/p ST camacho, puree diet order recommended. Pt refusal of nutritional supplements. Recommend Puree diet order placement Recommend appetite stimulant If poor PO continues, recommend alternate means nutrition. RD to continue to monitor. Please notify as additional nutrition concerns arise. Thank you. Addendum: 12/31/19 at [address] Amended: Links added.
[2019-12-31] MEDS ORDERED: DEXTROSE 5 %-0.45 % NACL 1,000 ML IV ONE (12:21)
--- NOTE | 2019-12-31 13:55 | NUR ---
DC PLAN COVID RESULTS RETURNED STILL POSITIVE. LET JOEL KNOW GAVE INFO SAID OKAY TO TRANSFER. WENT TO PLACE INFO IN CHART AND LET NURSE KNOW SAID THAT PATIENT HAS SCABBIES, NOT EATING VERY WELL AND NOT SURE IF PATIENT CAN DISCHARGE. SPOKE TO JOEL SAID THAT IF PATIENT HAD ONE TREATMENT PATIENT CAN GO TO FACILITY. LET NURSE KNOW SAID PATIENT HAS MITTENS AND WILL PULL HER IV LINE. THERE WAS A ORDER FOR PATIENT NOT NEEDING IV AND THAT THERE ARE ORDERS FOR REMOVAL OF MITTENS. SAID THAT PATIENT HAD LOW GLUCOSE AND STARTED IV. DOES NOT FEEL COMFORTABLE TO REMOVE MITTENS. SINCE THERE IS A CHANCE SHE WILL PULL IV. LET LIMA KNOW OF NURSES CONCERNS. LET DIRECTOR KNOW OF CONCERNS. Addendum: 12/31/19 at 1400 by NATALI RUTLEDGE RN CM Amended: Links added.
--- NOTE | 2019-12-31 14:21 | NUR ---
FOLLOW UP COMPLETED. Pt WITH NO OVERT S/S OF ASPIRATION, TOLERATING CURRENT DIET. WAREHOUSE RECEIVING CLERK COORDINATED WITH DIETITIRAYA DOAN RD SECONDARY TO POOR P.O. CONCERNS. WAREHOUSE RECEIVING CLERK WILL CONTINUE TO FOLLOW Pt. Addendum: 12/31/19 at [address] Amended: Links added.
--- NOTE | 2019-12-31 16:36 | NUR ---
Patient refusing to take liquids or eat; [facility] ok to take patient with scabies & covid positive; notified case management that patient to live needed ivf to prevent blood sugar from dropping, d51/2 ns @ 50 keeping blood sugars stable in 100's; urinated appropriately; removes mittens constantly & hits staff.
[2020-01-01 03:00] VITALS: BP 151/71
[2020-01-01 07:00] VITALS: BP 112/44
[2020-01-01] MEDS: FAMOTIDINE 20MG TAB 20 MG TAB PO SCH (08:34)
[2020-01-01] MEDS: ENOXAPARIN SODIUM 60 MG/0.6 ML SQ SCH ×2 (08:34→20:58)
[2020-01-01] MEDS: METOPROLOL TARTRATE 50 MG TAB PO SCH ×2 (08:34→20:56)
[2020-01-01] MEDS: DIGOXIN 125 MCG TABLET PO SCH (08:35)
--- NOTE | 2020-01-01 09:48 | NUR ---
PATIENT REFUSING PT NOT EATING, LIMA QUARRY PLUG AND FEATHER DRILLER HAS SPOKEN TO THE FAMILY IN REGARDS TO OVERALL PT STATUS, GI HAS BEEN CONSULTED FOR PEG TUBE EVALUATION. PT'S BGL'S HAVE BEEN RUNNING LOW AND HAD BEEN REQUIRING D5 NS AT 100ML/HR TO KEEP THEM WNL HOWEVER PATIENT PULLED OUT IV OVERNIGHT PER MISSION ASSESSMENT SPECIALIST NURSE AND IS REFUSING PLACEMENT OF A NEW ONE BY BOTH MISSION ASSESSMENT SPECIALIST RN AND MYSELF THIS MORNING. FAMILY AND QUARRY PLUG AND FEATHER DRILLER AWARE. WILL CONTINUE TO MONITOR PT.
--- NOTE | 2020-01-01 10:17 | NUR ---
CALL OUT PLACED TO DR. SCHULZ OFFICE SPOKE WITH JAMEL MADE AWARE OF PENDING CONSULT FOR PEG PLACEMENT
[2020-01-01 11:00] VITALS: BP 128/49
[2020-01-01 15:00] VITALS: BP 126/65
[2020-01-01 19:00] VITALS: BP 142/56
--- NOTE | 2020-01-01 19:45 | NUR ---
PM Assessment Received pt awake, calm only answers to open ended questions & oriented only to her name, re-oriented to time / place. Pt reported for PEG placement in AM at 0930, NPO post MN will be observed. Pt currently no IV access, attempted to place one but won't cooperate. I will try to attempt again later. Pt currently denied discomfort.
[2020-01-01 23:00] VITALS: BP 107/49
[2020-01-02] VITALS (20 sets, daily range): BP systolic 101–157; BP diastolic 45–105
[2020-01-02 04:53] LABS: BASOPHILS % (AUTO) 0.6 % (0.0-5.0); HEMATOCRIT 32.3 % (36-48); LYMPHOCYTES % (AUTO) 19.4 % (21.0-51.0); MEAN CORPUSCULAR HGB CONC 32.5 g/dL (32.0-36.0); MEAN CORPUSCULAR VOLUME 95.3 fL (79-99); MONOCYTES % (AUTO) 8.5 % (3.0-13.0); NEUTROPHILS % (AUTO) 69.1 % (40.0-77.0); PLATELET COUNT (AUTO) 419 K/uL (130-400); RED BLOOD CELL COUNT(AUTO) 3.39 MIL/uL (4.00-5.50); RED CELL DISTRIBUTION WIDTH 18.4 % (11.0-15.5); WHITE BLOOD COUNT (AUTO) 7.1 K/uL (4.8-10.8)
[2020-01-02 05:06] LABS: ALBUMIN 2.1 g/dL (3.5-5.0); BILIRUBIN,TOTAL 0.8 mg/dL (0.2-1.0); CREATININE 1.1 mg/dL (0.5-1.5); POTASSIUM 3.5 mmol/L (3.5-5.1); TOTAL PROTEIN, SERUM 6.6 g/dL (6.0-8.3)
[2020-01-02] MEDS: FAMOTIDINE 20MG TAB 20 MG TAB PO SCH (09:00)
[2020-01-02] MEDS: METOPROLOL TARTRATE 50 MG TAB PO SCH ×2 (09:00→21:00)
[2020-01-02] MEDS: DIGOXIN 125 MCG TABLET PO SCH (09:00)
[2020-01-02] MEDS: ENOXAPARIN SODIUM 60 MG/0.6 ML SQ SCH ×2 (10:14→21:02)
--- NOTE | 2020-01-02 10:22 | NUR ---
PLANS TO HAVE PEG PLACED TODAY HOLDING ALL PO MEDS TILL PEG PLACED, UNABLE TO TAKE PO.
--- NOTE | 2020-01-02 11:45 | NUR ---
TAKEN TO ENDOSCOPY FOR PEG PLACEMENT.
[2020-01-02] MEDS ORDERED: CEFAZOLIN SODIUM 1 GM VIAL ONE (12:06)
[2020-01-02] MEDS ORDERED: PROPOFOL 10 MG/ML 20ML VIAL IV ONE (12:14)
--- NOTE | 2020-01-02 13:40 | NUR ---
BACK FROM PEG PLACEMENT REPORT TAKEN FROM ENDO NURSE, NEW PIV TO RIGHT FOREARM STARTED IN ENDOSCOPY PIV TO LEFT FA WAS D/C DUE TO INFILTRATE IN ENDOSCOPY.
--- NOTE | 2020-01-02 19:20 | NUR ---
PM Assessment Received pt awake, calm, s/p PEG placement today with abdominal binder in place, IV access saline lock change to a 6 inch lock as noted with 24inch from endo, aseptically with good blood return. Routine assessment done, plan of care re-discuss, pt made aware possibly will be going to SNF tomorrow once we are able to start feeding via her PEG. Pt currently denies discomfort.
[2020-01-03 03:00] VITALS: BP 129/60
[2020-01-03 04:21] LABS: BASOPHILS % (AUTO) 0.3 % (0.0-5.0); EOSINOPHILS % (AUTO) 0.2 % (0.0-8.0); HEMATOCRIT 31.4 % (36-48); LYMPHOCYTES % (AUTO) 10.4 % (21.0-51.0); MEAN CORPUSCULAR HEMOGLOBIN 30.8 pg (27.0-33.0); MEAN CORPUSCULAR HGB CONC 32.5 g/dL (32.0-36.0); MEAN CORPUSCULAR VOLUME 94.9 fL (79-99); MONOCYTES % (AUTO) 5.7 % (3.0-13.0); NEUTROPHILS % (AUTO) 82.7 % (40.0-77.0); PLATELET COUNT (AUTO) 386 K/uL (130-400); RED BLOOD CELL COUNT(AUTO) 3.31 MIL/uL (4.00-5.50); RED CELL DISTRIBUTION WIDTH 18.3 % (11.0-15.5); WHITE BLOOD COUNT (AUTO) 12.4 K/uL (4.8-10.8)
[2020-01-03 04:35] LABS: CREATININE 0.9 mg/dL (0.5-1.5); MAGNESIUM 1.5 mg/dL (1.80-2.40); PHOSPHORUS 2.7 mg/dL (2.5-4.9); POTASSIUM 3.4 mmol/L (3.5-5.1)
[2020-01-03 07:00] VITALS: BP 139/68
--- NOTE | 2020-01-03 08:00 | NUR ---
AM ASSESSMENT COMPLETE, RESTING QUIETLY IN BED NO COMPLAINS AT THIS TIME, VSS. PEG TUBE FLUSHED W/ 150CC WATER. PIV PATEINT TO SL AND FLUSHED.
[2020-01-03] MEDS: FLUTICASONE PROPIONATE 50MCG/SPRAY 16 GM BOTTLE EN SCH (09:00)
[2020-01-03] MEDS: DIGOXIN 125 MCG TABLET PO SCH (09:30)
[2020-01-03] MEDS: FAMOTIDINE 20MG TAB 20 MG TAB PO SCH (09:30)
[2020-01-03] MEDS: METOPROLOL TARTRATE 50 MG TAB PO SCH ×2 (09:30→20:20)
[2020-01-03] MEDS: ENOXAPARIN SODIUM 60 MG/0.6 ML SQ SCH ×2 (09:32→20:21)
--- NOTE | 2020-01-03 10:00 | NUR ---
MD VISIT, CHAIR CAR ATTENDANT AT BEDSIDE ORDERS TO START TUBE FEEDINGS VITAL 1.2 AT 20CC/HR UNTIL RD ASSESSMENT FOR RECOMMENDATIONS FOR TUBE FEEDINGS.
[2020-01-03 11:00] VITALS: BP 118/57
[2020-01-03 16:00] VITALS: BP 138/67
[2020-01-03 19:58] VITALS: BP 149/60
[2020-01-04] VITALS (8 sets, daily range): BP systolic 118–134; BP diastolic 50–115
[2020-01-04 04:29] LABS: BASOPHILS % (AUTO) 0.3 % (0.0-5.0); EOSINOPHILS % (AUTO) 0.3 % (0.0-8.0); HEMATOCRIT 29.8 % (36-48); LYMPHOCYTES % (AUTO) 9.4 % (21.0-51.0); MEAN CORPUSCULAR HEMOGLOBIN 30.7 pg (27.0-33.0); MEAN CORPUSCULAR HGB CONC 32.9 g/dL (32.0-36.0); MEAN CORPUSCULAR VOLUME 93.4 fL (79-99); MONOCYTES % (AUTO) 6.1 % (3.0-13.0); PLATELET COUNT (AUTO) 369 K/uL (130-400); RED BLOOD CELL COUNT(AUTO) 3.19 MIL/uL (4.00-5.50); RED CELL DISTRIBUTION WIDTH 18.4 % (11.0-15.5); WHITE BLOOD COUNT (AUTO) 12.7 K/uL (4.8-10.8)
[2020-01-04 04:56] LABS: ALBUMIN 1.6 g/dL (3.5-5.0); BILIRUBIN,TOTAL 0.8 mg/dL (0.2-1.0); MAGNESIUM 1.6 mg/dL (1.80-2.40); PHOSPHORUS 2.3 mg/dL (2.5-4.9); POTASSIUM 3.3 mmol/L (3.5-5.1); TOTAL PROTEIN, SERUM 6.3 g/dL (6.0-8.3)
[2020-01-04] MEDS: METOPROLOL TARTRATE 50 MG TAB PO SCH ×2 (08:28→20:14)
[2020-01-04] MEDS: FAMOTIDINE 20MG TAB 20 MG TAB PO SCH (08:28)
[2020-01-04] MEDS: POTASSIUM CHLORIDE 20MEQ/100ML 100 ML IV PRN (08:28)
[2020-01-04] MEDS: ENOXAPARIN SODIUM 60 MG/0.6 ML SQ SCH ×2 (08:29→20:14)
[2020-01-04] MEDS: FLUTICASONE PROPIONATE 50MCG/SPRAY 16 GM BOTTLE EN SCH (08:30)
[2020-01-04] MEDS: DIGOXIN 125 MCG TABLET PO SCH ×2 (08:30→11:38)
--- NOTE | 2020-01-04 17:08 | NUR ---
DC PLAN SPOKE TO REP FOR [facility]. SAID NEED TO RE SUBMIT FOR AUTH. WILL DO SO TOMORROW. SINCE INSURANCE CLOSED TODAY. Addendum: 01/04/20 at 1709 by NATALI RUTLEDGE RN CM Amended: Links added.
[2020-01-05 01:43] VITALS: BP 123/52
[2020-01-05 06:23] VITALS: BP 142/67
[2020-01-05] MEDS: FLUTICASONE PROPIONATE 50MCG/SPRAY 16 GM BOTTLE EN SCH (09:00)
[2020-01-05 09:59] VITALS: BP 147/98
[2020-01-05] MEDS: METOPROLOL TARTRATE 50 MG TAB PO SCH (10:01)
[2020-01-05] MEDS: FAMOTIDINE 20MG TAB 20 MG TAB PO SCH (10:01)
[2020-01-05] MEDS: DIGOXIN 125 MCG TABLET PO SCH (10:01)
[2020-01-05] MEDS: ENOXAPARIN SODIUM 60 MG/0.6 ML SQ SCH (10:03)
--- NOTE | 2020-01-05 12:00 | NUR ---
glucose 137
--- NOTE | 2020-01-05 12:06 | NUR ---
RD FOLLOW UP -TUBE FEEDING RD Notification for Tube Feeding Evaluation. Recommend Initiate Bolus Feedings as requested. 5 Cans Vital AF 1.2 per day. H2O Flushes of 130-150 cc before and after each feeding. Recommendations faxed to Yakov RN received order. RD to continue to monitor.
--- NOTE | 2020-01-05 16:06 | NUR ---
DC PLAN GOT RE AUTH FROM [facility]. PER JOEL PATIENT OKAY TO GO TO [facility]. THEY HAVE A ONSITE PSYCHOLOGIST DEVELOPMENTAL SO THAT THEY CAN ADVANCE FEEDING. LET JAE LAUREN KNOW OF AUTH AND ACCEPTANCE. SENT CLINICALS FOR [facility] TO [facility] SINCE THEY INITIATED A PRE AUTH FOR EMS. [id number]. FAXED TO [phone]. GAVE INFO TO NURSE. INCLUDING THE FACILITY PHONE NUMBER AND [facility] NUMBER. ORANGE PAPER IN CHART. Addendum: 01/05/20 at 1610 by NATALI RUTLEDGE RN CM Amended: Links added.
--- NOTE | 2020-01-05 16:30 | NUR ---
report given to [facility] nurse manda.
[2020-01-05 17:00] VITALS: BP 151/62
--- NOTE | 2020-01-05 18:05 | NUR ---
Pt being picked up by EMS at this time. Stable Condition. Tube feeding disconnected and flushed with 150ml water.
[2020-01-05] MEDS ORDERED: APIXABAN 5 MG TABLET PO SCH (21:00)
== END 2020-01-05 18:00 | DRG 177 ==
LOC: EDH 13:42 → OBSVTOIN 16:34 → EDHIP 16:34 → 2AH 12-16 02:13
PROVIDERS: ADMIT Internal Medicine Critical Care Medicine; ATTEND Internal Medicine Critical Care Medicine
PROC: 02HV33Z Insertion of Infusion Device into Superior Vena Cava, Percutaneous Approach (ICD-10-PCS; 2019-12-20)
PROC: 0DH63UZ Insertion of Feeding Device into Stomach, Percutaneous Approach (ICD-10-PCS; principal; 2020-01-02)
DX: U07.1 COVID-19 (principal); J96.01 Acute respiratory failure with hypoxia; I50.33 Acute on chronic diastolic (congestive) heart failure; J12.89 Other viral pneumonia; G92 Toxic encephalopathy; N17.9 Acute kidney failure, unspecified; D68.59 Other primary thrombophilia; N39.0 Urinary tract infection, site not specified; E87.0 Hyperosmolality and hypernatremia; N18.4 Chronic kidney disease, stage 4 (severe); I48.20 Chronic atrial fibrillation, unspecified; E78.5 Hyperlipidemia, unspecified; F02.80 Dementia in other diseases classified elsewhere, unspecified severity, without behavioral disturbance, psychotic disturbance, mood disturbance, and anxiety; G30.9 Alzheimer's disease, unspecified; E11.22 Type 2 diabetes mellitus with diabetic chronic kidney disease; E87.8 Other disorders of electrolyte and fluid balance, not elsewhere classified; E11.649 Type 2 diabetes mellitus with hypoglycemia without coma; L29.9 Pruritus, unspecified; L89.312 Pressure ulcer of right buttock, stage 2; L89.322 Pressure ulcer of left buttock, stage 2; B86 Scabies; I08.1 Rheumatic disorders of both mitral and tricuspid valves; Z79.899 Other long term (current) drug therapy; R13.12 Dysphagia, oropharyngeal phase
CPT/HCPCS: 36415; 36600; 43246; 71045; 80048; 80053; 81001; 82803; 82948; 83605; 83735; 84100; 84145; 84443; 84484; 85025; 85027; 85610; 85730; 86900; 86901; 87040; 87088; 87426; 92610; 93005; 93306; 97039; 99291; C1894; G0378; J0282; J0690; J0696; J1160; J1644; J1650; J2405; J2704; J3475; J3480; J3490; J7030; J7042; J7060; J7070; J7120; U0003